=== PATIENT | female | born 1990 ===

== ENCOUNTER 2024-03-02 05:56 | Inpatient (IN) | payer BC ==
[2024-03-02] MEDS ORDERED: Ibuprofen 800 MG TAB PO PRN (06:00)
[2024-03-02] MEDS ORDERED: HYDROcodone/Acetaminophen 5/325 mg Tablet PO PRN ×4 (06:00→19:08)
[2024-03-02] MEDS ORDERED: Lidocaine 1% (PF) 30 ML VIAL SC PRN (06:00)
[2024-03-02] MEDS ORDERED: hydrALAZINE 20 MG/ML VIAL SLOW IVP PRN ×2 (06:00→19:08)
[2024-03-02] MEDS ORDERED: Ondansetron PF 4 MG/2 ML Vial IVP PRN ×3 (06:00→19:08)
[2024-03-02] MEDS ORDERED: Oxytocin 30 units/NS 500 ML 500 ML IV SCH ×3 (06:00→19:08)
[2024-03-02] MEDS ORDERED: Promethazine HCl 25 MG/ML VIAL IM PRN ×2 (06:00→08:31)
[2024-03-02] MEDS ORDERED: fentaNYL 50 mcg/mL 1 mL Vial SLOW IVP PRN (06:00)
[2024-03-02 06:36] VITALS: BMI 34.5
[2024-03-02 06:54] LABS: Hematocrit 35.4 % (34.9-44.5); Mean Corpuscular HGB CONC 33.9 g/dL (32.0-36.0); Mean Corpuscular Hemoglobin 28.6 pg (27.0-33.0); Mean Corpuscular Volume 84.3 fL (81.6-98.3); Mean Platelet Volume 11.7 fL (7.4-10.4); Platelet Count 253 10x3/uL (150-450); RBC Distribution Width 14.4 % (11.5-14.5); White Blood Cell (WBC) Count 12.7 10x3/uL (3.5-10.5)
[2024-03-02 07:28] LABS: Syphilis Antibody Nonreactive (Nonreactive); Syphilis Antibody Index 0.09 S/CO (<1.00 Non-Reactive)
[2024-03-02 07:30] LABS: HBsAg Index 0.22 S/CO (0-0.99); Hep B Surf Ag - L&D Non-Reactive S/CO (NonReactive)
[2024-03-02] MEDS ORDERED: Naloxone HCl 0.4 mg/ml Vial IVP PRN ×2 (08:31)
[2024-03-02] MEDS ORDERED: Lactated Ringer's 500 ML IV PRN (08:31)
[2024-03-02] MEDS ORDERED: Moisturizing Cream (Eucerin) 113 GM JAR TOP PRN (08:31)
[2024-03-02] MEDS ORDERED: Acetaminophen 325 MG TAB PO PRN (08:31)
[2024-03-02] MEDS ORDERED: ePHEDrine Sulfate 50 MG/10 ML VIAL SLOW IVP PRN (08:31)
[2024-03-02] MEDS ORDERED: diphenhydrAMINE 50 MG/ML VIAL IVP PRN (08:31)
[2024-03-02] MEDS ORDERED: fentaNYL 2 mcg/Ropivacaine 0.2% Epidural 100 ML CADD EPIDURAL SCH (08:45)
[2024-03-02] MEDS ORDERED: Communication Order-Pharmacy FS SCH (08:45)
[2024-03-02] MEDS ORDERED: Lanolin Ointment 7 GM TUBE TOP PRN (19:08)
[2024-03-02] MEDS ORDERED: Preparation H Ointment 28 GM TUBE PR PRN (19:08)
[2024-03-02] MEDS ORDERED: Bisacodyl 10 MG SUPP PR PRN (19:08)
[2024-03-02] MEDS ORDERED: Milk Of Magnesia 30 ML UDCUP PO PRN (19:08)
[2024-03-02] MEDS ORDERED: diphenhydrAMINE 25 MG CAP PO PRN (19:08)
[2024-03-02] MEDS: Benzocaine-Menthol 82.5 ML CAN TOP PRN (21:12)
[2024-03-02] MEDS: Docusate 100 MG CAP PO SCH (21:12)
[2024-03-02] MEDS: Ibuprofen 800 MG TAB PO SCH (21:12)
[2024-03-03] MEDS: fentaNYL/Ropivacaine Epidural 100 ML ONE (07:46)
[2024-03-03] MEDS: Boostrix 0.5 ML (Tdap) VIAL (>/=7 yrs of age) IM ONE (07:46)
[2024-03-03] MEDS: Ferrous Sulfate 325 MG TAB PO SCH ×2 (07:47)
[2024-03-03] MEDS: Prenatal Vitamin 1 TAB PO SCH (08:26)
[2024-03-03 16:09] VITALS: BP 140/79; TEMP 98
== END 2024-03-03 17:35 | disposition home or self-care (01) | DRG 807 ==
LOC: CSHLD 05:56 → CSHPP 20:31
PROVIDERS: ADMIT Obstetrics & Gynecology; ATTEND Obstetrics & Gynecology
PROC: 10H07YZ Insertion of Other Device into Products of Conception, Via Natural or Artificial Opening (ICD-10-PCS; principal; 2024-03-02)
PROC: 10E0XZZ Delivery of Products of Conception, External Approach (ICD-10-PCS; 2024-03-02)
PROC: 0KQM0ZZ Repair Perineum Muscle, Open Approach (ICD-10-PCS; 2024-03-02)
PROC: 10907ZC Drainage of Amniotic Fluid, Therapeutic from Products of Conception, Via Natural or Artificial Opening (ICD-10-PCS; 2024-03-02)
DX: O48.0 Post-term pregnancy (principal); Z37.0 Single live birth; Z3A.40 40 weeks gestation of pregnancy; O70.1 Second degree perineal laceration during delivery
CPT/HCPCS: 51702; 85027; 86780; 86850; 86900; 86901; 87340